=== PATIENT | female | born 1965 | race Caucasian/White ===

== ENCOUNTER 2017-09-25 10:51 | Emergency (ER) | payer OTHER ==
[~2017-09-25] VITALS: Ht 160 cm; Wt 69.4 kg
[2017-09-25] MEDS ORDERED: ALBUTEROL2.5 MG/3 M (11:17)
== END 2017-09-25 12:56 | disposition home or self-care (01) ==
LOC: ER 10:51
DX: L55.9 Sunburn, unspecified (principal)